=== PATIENT | male | born 1970 | race Caucasian/White ===

== ENCOUNTER 2020-07-01 06:20 | Day surgery (SDC) | payer OTHER ==
[~2020-07-01] VITALS: Ht 177.8 cm; Wt 105.7 kg
[~2020-07-01 06:20] MED LIST: FLOVENT DISKU100 MCG INH; VENTOLIN HFA18 GM INH
--- NOTE | 2020-07-01 07:53 | NUR ---
07/01/20 0753 Rupinder Maurer 0746 PATIENT ARRIVES TO PACU SLEEPING. OPENS EYES WITH VERBAL STIMULI, ANSWERS QUESTIONS, BACK TO SLEEP WHEN NOT STIMULATED. RESP EVEN AND UNLABORED, NC AT 1 LITERS. 0753 PATIENT SLEEPING. OXYGEN OFF.
--- NOTE | 2020-07-01 13:55 | NUR ---
PT ALERT, ORIENTED AND HERE FOR FIRST SCOPE. PREP WAS NOT A PLEASANT EXPERIENCE FOR PT. ALL QUESTIONS ASKED ANSWERED. PT REQUESTED PRAYER WILL FOLLOW NEEDED
--- NOTE | 2020-07-01 19:09 | OR ---
[facility] [address], [place] [address] Signed DATE OF OPERATION: 07/01/2020 SURGEON: Marika Potter MD PREOPERATIVE DIAGNOSIS: Screening. POSTOPERATIVE DIAGNOSIS: Unremarkable colonoscopy. PROCEDURE: Colonoscopy without biopsy. ESTIMATED BLOOD LOSS: None. INDICATIONS: Lamont is a 49-year-old gentleman, asked to see me for his initial screening colonoscopy. He has no lower GI complaints. There is no family history of colon cancer or polyps. In the office, I gave him a pamphlet on colonoscopy. We looked at that together along with the risks including, but not limited to gas bloating, crampy abdominal pain, bleeding, perforation requiring surgery, and missed diagnosis. We also discussed the need for IV conscious sedation. He had expressed understanding wished to proceed. DESCRIPTION OF PROCEDURE: Lamont was taken into our endoscopy suite and placed in the left lateral decubitus position. He was given IV sedation with 3 mg of Versed and 100 mcg of fentanyl. A digital rectal exam was performed and this was unremarkable. His prostate is slightly enlarged, but not particularly indurated. The adult colonoscope was then introduced and advanced quite readily into the cecum under direct visualization of camera without difficulty. His prep was quite excellent. We could easily see the appendiceal orifice and the ileocecal valve. The scope was slowly withdrawn. He had no pathology throughout the entire colon or rectum. Upon retroflexion of scope, there was no additional pathology noted above the anal canal. After this, the gas was suctioned out. The colonoscope removed. Lamont tolerated the procedure quite well. RECOMMENDATIONS: Lamont can follow up in 10 years for repeat colonoscopy. Electronically Signed By: MARIKA POTTER MD 07/01/20 1909 PATIENT NAME: LAMONT ALMODOVAR OPERATIVE REPORT DATE OF : 68 REPORT #: [id number] PHYSICIAN: MARIKA POTTER MD PCP: JACKSON MCCLAIN MD REPORT IS CONFIDENTIAL AND NOT TO BE RELEASED WITHOUT AUTHORIZATION [address] [place], [place] [address] Signed MD CHELLE Felder/CLARISSA /[id number] Copies: ~ Electronically Signed By: MARIKA POTTER MD 07/01/20 1909 PATIENT NAME: LAMONT ALMODOVAR OPERATIVE REPORT DATE OF : 68 REPORT #: [id number] PHYSICIAN: MARIKA POTTER MD PCP: JACKSON MCCLAIN MD REPORT IS CONFIDENTIAL AND NOT TO BE RELEASED WITHOUT AUTHORIZATION
== END 2020-07-01 09:40 | disposition home or self-care (01) ==
LOC: DS 06:20 → OPS 06:20 → DS 06:45 → OPS 06:45
PROVIDERS: Colon & Rectal Surgery
PROC: 0DJD8ZZ Inspection of Lower Intestinal Tract, Via Natural or Artificial Opening Endoscopic (ICD-10-PCS; principal; 2020-07-01 06:45)
DX: Z12.11 Encounter for screening for malignant neoplasm of colon (principal); N40.0 Benign prostatic hyperplasia without lower urinary tract symptoms; Z79.899 Other long term (current) drug therapy
CPT/HCPCS: 99153; G0500; J2250; J3010; J7121